=== PATIENT | male | born 1940 | race Caucasian/White ===

== ENCOUNTER → 2018-05-01 | Outpatient (CLI) | payer OTHER | END | disposition home or self-care (01) | LOC: PCVCIMAG 13:49 | DX: I25.10 Atherosclerotic heart disease of native coronary artery without angina pectoris (principal); M79.602 Pain in left arm; M79.89 Other specified soft tissue disorders; I10 Essential (primary) hypertension; E78.00 Pure hypercholesterolemia, unspecified | CPT/HCPCS: 93005; 93931; 93971; G0463 ==